=== PATIENT | female | born 1990 | race Caucasian/White ===

== ENCOUNTER 2019-01-14 22:54 | Outpatient (CLI) | payer OTHER ==
[~2019-01-14 22:54] MED LIST: MAXFE CAPLET1 EACH PO; PRENATAL 19 TA1 EACH PO
== END 2019-01-15 07:50 | disposition home or self-care (01) ==
LOC: OBS/DEL 22:54
DX: O23.43 Unspecified infection of urinary tract in pregnancy, third trimester (principal); Z34.83 Encounter for supervision of other normal pregnancy, third trimester; O21.8 Other vomiting complicating pregnancy

== ENCOUNTER 2019-01-20 09:39 | Inpatient (IN) | payer OTHER ==
[~2019-01-20] VITALS: Ht 172.7 cm; Wt 92.1 kg
[2019-01-20] MEDS ORDERED: DURICEF PO (14:00)
[2019-01-20] MEDS ORDERED: DUI500 PO (15:53)
== END 2019-01-22 12:09 | disposition home or self-care (01) | DRG 807 ==
LOC: LDR 09:39 → OB/GYN 09:39
PROVIDERS: ADMIT Obstetrics & Gynecology
PROC: 10E0XZZ Delivery of Products of Conception, External Approach (ICD-10-PCS; principal; 2019-01-20)
PROC: 0HQ9XZZ Repair Perineum Skin, External Approach (ICD-10-PCS; 2019-01-20)
PROC: 3E033VJ Introduction of Other Hormone into Peripheral Vein, Percutaneous Approach (ICD-10-PCS; 2019-01-20)
PROC: 4A1HXCZ Monitoring of Products of Conception, Cardiac Rate, External Approach (ICD-10-PCS; 2019-01-20)
DX: O70.0 First degree perineal laceration during delivery (principal); Z37.0 Single live birth; Z3A.37 37 weeks gestation of pregnancy; Z22.330 Carrier of Group B streptococcus